=== PATIENT | female | born 1965 | race Caucasian/White ===

== ENCOUNTER 2016-11-07 18:34 | Observation (INO) | payer BC ==
[2016-11-07] MEDS ORDERED: Sodium Chloride 0.9% 1,000 ML IV ONE ×2 (18:50→22:14)
--- NOTE | 2016-11-07 19:17 | EDM.PDOC ---
ED HISTORY OF PRESENT ILLNESS - General Chief Complaint: Respiratory Problem Stated Complaint: fever, cough, fatigue Time Seen by Provider: 11/07/16 19:00 Source of Information: Reports: Patient, Family History Limitations: Reports: No limitations - History of Present Illness INITIAL COMMENTS - FREE TEXT/NARRATIVE: 6 days of fever (subjective), chills, cough for about 5 days, weak and fatigued today. Chest is hurting with cough. Symptom Onset Date: 11/02/16 Severity: severe Location, General: Reports: chest Quality: Reports: Ache (with cough) Improves with: Reports: None Worsens with: Reports: Other (cough) Associated Symptoms (General): Reports: chest pain (with cough), cough, fever/ chills, malaise, nausea/vomiting (only when coughing too hard), weakness. Denies: confusion, rash, shortness of breath, syncope - Related Data Allergies/ADRs: Allergies Allergy/AdvReac Type Severity Reaction Status Date / Time No Known Allergies Allergy Verified 11/07/16 18:39 Home Meds: Home Meds Ibuprofen [Advil] 400 mg PO Q6H PRN 11/07/16 [History] PARoxetine HCl [Paroxetine HCl] 1 tab PO DAILY 11/07/16 [History] Phenylephrine/Dm/Acetaminop/Gg [Delsym Cough+Cold Daytime Liq] 1 dose PO ASDIRECTED PRN 11/07/16 [History] SUMAtriptan Succinate [Sumatriptan Succinate] 1 tab PO ASDIRECTED PRN 11/07/16 [ History] guaiFENesin/Dextromethorphan [Mucinex Dm ER 1,200-60 mg Tab] 1 each PO ASDIRECTED PRN 11/07/16 [History] ED ROS GENERAL - Review of Systems Review Of Systems: See Below Constitutional: Reports: fever, chills, malaise, weakness, fatigue HEENT: Reports: No symptoms Respiratory: Reports: Pleuritic Chest Pain, Cough Cardiovascular: Reports: No symptoms Endocrine: Reports: no symptoms GI/Abdominal: Reports: No symptoms : Reports: no symptoms Musculoskeletal: Reports: no symptoms Skin: Reports: no symptoms Neurological: Reports: No Symptoms Psychiatric: Reports: No symptoms Hematologic/Lymphatic: Reports: no symptoms Immunologic: Reports: no symptoms ED EXAM, GENERAL - Physical Exam Exam: See Below Exam Limited By: No limitations General Appearance: alert, WD/WN, mild distress (uncomfortable, fatigued) Eye Exam: bilateral eye: EOMI, PERRL Ears: normal external exam, hearing grossly normal Nose: normal inspection, normal mucosa, no blood Throat/Mouth: Normal inspection, Normal oropharynx, Normal voice, No airway compromise Head: atraumatic, normocephalic Neck: normal inspection, supple, non-tender, full range of motion. No: lymphadenopathy (L), lymphadenopathy (R) Respiratory/Chest: no respiratory distress, no accessory muscle use, rhonchi ( trace and scattered) Cardiovascular: normal peripheral pulses, regular rate, rhythm, no JVD, no murmur GI/Abdominal: normal bowel sounds, soft, non tender, no organomegaly Back Exam: normal inspection, full range of motion Extremities: normal inspection, normal range of motion, non-tender, no pedal edema, normal capillary refill Neurological: alert, oriented, CN II-XII intact, normal cognition, normal gait, no motor/sensory deficits Psychiatric: normal affect, normal mood Skin Exam: Warm, Dry, Intact, Normal color, No rash Lymphatic: no adenopathy Course - Vital Signs Last Recorded V/S: Last Vital Signs Temp 37.3 C 11/07/16 18:35 Pulse 73 11/07/16 18:35 Resp 22 H 11/07/16 18:35 BP 97/57 L 11/07/16 18:35 Pulse Ox 96 11/07/16 18:35 - Orders/Labs/Meds Orders: Active Orders 24 hr Category Date Time Status Orthostatic Vital Signs [RC] ASDIRECTED Care 11/07/16 20:17 Active Chest 2V [CR] Stat Exams 11/07/16 18:49 Taken CULTURE BLOOD [BC] Stat Lab 11/07/16 19:00 Received CULTURE BLOOD [BC] Stat Lab 11/07/16 19:40 Received UA W/MICROSCOPIC [URIN] Stat Lab 11/07/16 18:52 Uncollected Sodium Chloride 0.9% [Saline Flush] Med 11/07/16 18:53 Active 10 ml FLUSH ASDIRECTED PRN Blood Culture x2 Reflex Set [OM.PC] Stat Oth 11/07/16 19:38 Ordered Saline Lock Insert [OM.PC] Routine Oth 11/07/16 18:53 Ordered Medication Orders Promethazine HCl/Codeine (Phenergan With Codeine) 10 ml PO Q6HR PRN PRN Reason: Cough Sodium Chloride (Saline Flush) 10 ml FLUSH ASDIRECTED PRN PRN Reason: Keep Vein Open Labs: Laboratory Tests 11/07/16 11/07/16 11/07/16 Range/Units 19:00 19:00 19:00 WBC 7.1 (4.0-10.2) K/uL RBC 4.24 (3.77-5.09) M/uL Hgb 12.8 (11.7-15.5) g/dL Hct 37.8 (34.0-46.0) % MCV 89.2 (84.0-98.0) fL MCH 30.2 (28.2-33.3) pg MCHC 33.9 (31.7-36.0) g/dL RDW 12.6 (11.2-14.1) % Plt Count 96 L (150-350) K/uL Neut % (Auto) 74.7 (45.0-80.0) % Lymph % (Auto) 16.8 (10.0-50.0) % [place] % (Auto) 8.1 (2.0-14.0) % Eos % (Auto) 0.3 (0.0-5.0) % Baso % (Auto) 0.1 (0.0-2.0) % Neut # 5.32 (1.40-7.00) K/uL Lymph # 1.20 (0.50-3.50) K/uL [place] # 0.58 (0.00-1.00) K/uL Eos # 0.02 (0.00-0.50) K/uL Baso # 0.01 (0.00-0.20) K/uL Sodium 140 (136-145) mmol/L Potassium 3.9 (3.5-5.1) mmol/L Chloride 104 (98-107) mmol/L Carbon Dioxide 23.8 (21.0-32.0) mmol/L BUN 9 (7-18) mg/dL Creatinine 0.84 (0.51-1.17) mg/dL Est Cr Clr Drug Dosing 72.51 mL/min Estimated GFR (MDRD) > 60 mL/min Glucose 98 (74-106) mg/dL Lactic Acid 1.9 (0.4-2.0) mmol/L Calcium 8.4 L (8.5-10.1) mg/dL Total Bilirubin 0.4 (0.2-1.0) mg/dL AST 24 (15-37) U/L ALT 18 (12-78) U/L Alkaline Phosphatase 57 (46-116) IU/L Total Protein 7.1 (6.4-8.2) g/dL Albumin 3.9 (3.4-5.0) g/dL HCG, Qual (NEGATIVE) 11/07/16 Range/Units 19:00 WBC (4.0-10.2) K/uL RBC (3.77-5.09) M/uL Hgb (11.7-15.5) g/dL Hct (34.0-46.0) % MCV (84.0-98.0) fL MCH (28.2-33.3) pg MCHC (31.7-36.0) g/dL RDW (11.2-14.1) % Plt Count (150-350) K/uL Neut % (Auto) (45.0-80.0) % Lymph % (Auto) (10.0-50.0) % [place] % (Auto) (2.0-14.0) % Eos % (Auto) (0.0-5.0) % Baso % (Auto) (0.0-2.0) % Neut # (1.40-7.00) K/uL Lymph # (0.50-3.50) K/uL [place] # (0.00-1.00) K/uL Eos # (0.00-0.50) K/uL Baso # (0.00-0.20) K/uL Sodium (136-145) mmol/L Potassium (3.5-5.1) mmol/L Chloride (98-107) mmol/L Carbon Dioxide (21.0-32.0) mmol/L BUN (7-18) mg/dL Creatinine (0.51-1.17) mg/dL Est Cr Clr Drug Dosing mL/min Estimated GFR (MDRD) mL/min Glucose (74-106) mg/dL Lactic Acid (0.4-2.0) mmol/L Calcium (8.5-10.1) mg/dL Total Bilirubin (0.2-1.0) mg/dL AST (15-37) U/L ALT (12-78) U/L Alkaline Phosphatase (46-116) IU/L Total Protein (6.4-8.2) g/dL Albumin (3.4-5.0) g/dL HCG, Qual Negative (NEGATIVE) Meds: Medications Generic Name Dose Route Start Last Admin Trade Name Freq PRN Reason Stop Dose Admin Promethazine HCl/Codeine 10 ml 11/07/16 20:51 Phenergan With Codeine PO Q6HR PRN Cough Sodium Chloride 10 ml 11/07/16 18:53 Saline Flush FLUSH ASDIRECTED PRN Keep Vein Open Discontinued Medications Generic Name Dose Route Start Last Admin Trade Name Freq PRN Reason Stop Dose Admin Azithromycin 500 mg 11/07/16 19:38 11/07/16 19:50 Zithromax PO 11/07/16 19:39 500 mg ONETIME ONE Administration Sodium Chloride 1,000 mls @ 999 mls/hr 11/07/16 18:50 11/07/16 19:03 Normal Saline IV 11/07/16 19:50 999 mls/hr .BOLUS ONE Administration Ceftriaxone Sodium 1 gm/ 100 mls @ 200 mls/hr 11/07/16 19:38 11/07/16 19:50 Sodium Chloride IV 11/07/16 20:07 200 mls/hr ONETIME ONE Administration - Re-Assessments/Exams Free Text/Narrative Re-Assessment/Exam: 11/07/16 21:09 Feels better with fluids. Orthostatics positive with SBP 85 while standing. Departure - Departure Time of Disposition: 21:09 Disposition: Refer to Observation Condition: fair Clinical Impression: Pneumonia Qualifiers: Pneumonia type: due to unspecified organism Laterality: left Lung location: lower lobe of lung Qualified Code(s): J18.1 - Lobar pneumonia, unspecified organism - Problem List Review Problem List Initiated/Reviewed/Updated: No - My Orders Last 24 Hours: My Active Orders 11/07/16 18:49 Chest 2V [CR] Stat 11/07/16 18:52 UA W/MICROSCOPIC [URIN] Stat 11/07/16 18:53 Sodium Chloride 0.9% [Saline Flush] 10 ml FLUSH ASDIRECTED PRN Saline Lock Insert [OM.PC] Routine 11/07/16 19:00 CULTURE BLOOD [BC] Stat 11/07/16 19:38 Blood Culture x2 Reflex Set [OM.PC] Stat 11/07/16 19:40 CULTURE BLOOD [BC] Stat 11/07/16 20:17 Orthostatic Vital Signs [RC] ASDIRECTED - Assessment/Plan Last 24 Hours: My Active Orders 11/07/16 18:49 Chest 2V [CR] Stat 11/07/16 18:52 UA W/MICROSCOPIC [URIN] Stat 11/07/16 18:53 Sodium Chloride 0.9% [Saline Flush] 10 ml FLUSH ASDIRECTED PRN Saline Lock Insert [OM.PC] Routine 11/07/16 19:00 CULTURE BLOOD [BC] Stat 11/07/16 19:38 Blood Culture x2 Reflex Set [OM.PC] Stat 11/07/16 19:40 CULTURE BLOOD [BC] Stat 11/07/16 20:17 Orthostatic Vital Signs [RC] ASDIRECTED Assessment:: Pneumonia with persistent orthostatic hypotension after NS Plan: Observation Rocephin/Zithromax Fluids Cultures/ follow labs
[2016-11-07 19:28] LABS: CHLORIDE,CL 104 mmol/L (98-107); SODIUM,NA 140 mmol/L (136-145)
[2016-11-07] MEDS ORDERED: cefTRIAXone 1 GM in Sodium Chloride 0.9% 100 ML IV ONE (19:38)
[2016-11-07] MEDS ORDERED: Azithromycin 250 MG Tab PO ONE (19:38)
[2016-11-07] MEDS ORDERED: cefTRIAXone 1 GM in Sodium Chloride 0.9% 100 ML IV SCH (20:00)
[2016-11-07] MEDS: Codeine/Promethazine 10-6.25 MG/5 ML Syrup 5 ML UD Cup PO PRN (21:22)
[2016-11-07] MEDS ORDERED: SUMAtriptan 50 MG Tab PO PRN (22:14)
[2016-11-07] MEDS ORDERED: Ibuprofen 200 MG Tab PO PRN (22:14)
[2016-11-07] MEDS ORDERED: Calcium Carbonate 500 MG Tab.Chew PO PRN (22:14)
[2016-11-07] MEDS ORDERED: Acetaminophen 325 MG Tab PO PRN (22:14)
[2016-11-07] MEDS: Sodium Chloride 0.9% 1,000 ML IV SCH (22:48)
[2016-11-08] MEDS: Albuterol/Ipratropium 3.0-0.5 MG/3 ML Neb Soln NEB SCH ×4 (00:01→23:57)
[2016-11-08] MEDS: Codeine/Promethazine 10-6.25 MG/5 ML Syrup 5 ML UD Cup PO PRN ×4 (04:05→23:57)
[2016-11-08] MEDS: Sodium Chloride 0.9% 1,000 ML IV SCH ×3 (06:26→19:13)
[2016-11-08] MEDS: PARoxetine 20 MG Tab PO SCH (07:46)
[2016-11-08] MEDS: Azithromycin 250 MG Tab PO SCH (07:46)
[2016-11-08] MEDS ORDERED: Ketorolac 30 MG/ML SDV IVPUSH ONE (07:55)
[2016-11-08] MEDS: Sodium Chloride 0.9% 10 ML Syringe FLUSH PRN (08:28)
[2016-11-08] MEDS: SUMAtriptan 50 MG Tab PO PRN ×2 (08:29→16:31)
[2016-11-08] MEDS: Acetaminophen/HYDROcodone 325-5 MG Tab PO PRN ×2 (08:29→16:31)
[2016-11-08] MEDS ORDERED: Sodium Chloride 0.9% 500 ML IV ONE (09:47)
[2016-11-08] MEDS ORDERED: Ibuprofen 200 MG Tab PO PRN (14:00)
[2016-11-08] MEDS ORDERED: cefTRIAXone 1 GM in Sodium Chloride 0.9% 100 ML IV SCH (20:00)
[2016-11-09] MEDS: Sodium Chloride 0.9% 1,000 ML IV SCH ×2 (03:41→11:45)
[2016-11-09 07:45] LABS: CHLORIDE,CL 112 mmol/L (98-107); SODIUM,NA 147 mmol/L (136-145)
[2016-11-09] MEDS: PARoxetine 20 MG Tab PO SCH (08:08)
[2016-11-09] MEDS: Azithromycin 250 MG Tab PO SCH (08:08)
[2016-11-09] MEDS: Albuterol/Ipratropium 3.0-0.5 MG/3 ML Neb Soln NEB SCH (08:08)
[2016-11-09] MEDS: SUMAtriptan 50 MG Tab PO PRN (08:08)
[2016-11-09] MEDS: Acetaminophen/HYDROcodone 325-5 MG Tab PO PRN (08:09)
[2016-11-09] MEDS: Sodium Chloride 0.9% 10 ML Syringe FLUSH PRN ×2 (08:13→13:28)
[2016-11-09] MEDS: Codeine/Promethazine 10-6.25 MG/5 ML Syrup 5 ML UD Cup PO PRN (09:01)
[2016-11-09 11:51] VITALS: BP 135/74
--- NOTE | 2016-11-09 12:47 | PCM.PN ---
- General Info Date of Service: 11/08/16 Admission Dx/Problem (Free Text): Observation since yesterday with Left lower pneumonia. Hypotension Functional Status: Reports: pain controlled - Review of Systems General: Reports: Malaise. Denies: Fever HEENT: Reports: no symptoms Pulmonary: Reports: pleuritic chest pain, cough Cardiovascular: Reports: No Symptoms Gastrointestinal: Reports: No symptoms Genitourinary: Reports: no symptoms Musculoskeletal: Reports: no symptoms Skin: Reports: no symptoms Neurological: Reports: No Symptoms Psychiatric: Reports: no symptoms - Patient Data Vitals - most recent: Last Vital Signs Temp 36.6 C 11/09/16 11:49 Pulse 63 11/09/16 11:49 Resp 18 11/09/16 11:49 BP 135/74 11/09/16 11:49 Pulse Ox 92 L 11/09/16 11:49 Orthostatic Blood Pressure [ 87/48 Standing] Orthostatic Blood Pressure [ 135/74 Sitting] Orthostatic Blood Pressure [ 89/41 Side, Left] Weight - most recent: 59.874 kg I&O - last 24 hours: Intake & Output 11/08/16 11/09/16 11/09/16 22:59 06:59 14:59 Intake Total 1760 4311 170 Output Total 1100 1700 Balance 660 2611 170 Lab Results last 24 hrs: Laboratory Results - last 24 hr 11/09/16 11/09/16 Range/Units 06:55 06:55 WBC 7.9 (4.0-10.2) K/uL RBC 3.23 L (3.77-5.09) M/uL Hgb 9.8 L (11.7-15.5) g/dL Hct 30.1 L (34.0-46.0) % MCV 93.2 (84.0-98.0) fL MCH 30.3 (28.2-33.3) pg MCHC 32.6 (31.7-36.0) g/dL RDW 13.2 (11.2-14.1) % Plt Count 83 L (150-350) K/uL Neut % (Auto) 71.8 (45.0-80.0) % Lymph % (Auto) 20.5 (10.0-50.0) % [place] % (Auto) 6.6 (2.0-14.0) % Eos % (Auto) 0.8 (0.0-5.0) % Baso % (Auto) 0.3 (0.0-2.0) % Neut # 5.65 (1.40-7.00) K/uL Lymph # 1.61 (0.50-3.50) K/uL [place] # 0.52 (0.00-1.00) K/uL Eos # 0.06 (0.00-0.50) K/uL Baso # 0.02 (0.00-0.20) K/uL Sodium 147 H (136-145) mmol/L Potassium 4.1 (3.5-5.1) mmol/L Chloride 112 H (98-107) mmol/L Carbon Dioxide 25.6 (21.0-32.0) mmol/L BUN 4 L (7-18) mg/dL Creatinine 0.73 (0.51-1.17) mg/dL Est Cr Clr Drug Dosing 88.11 mL/min Estimated GFR (MDRD) > 60 mL/min Glucose 96 (74-106) mg/dL Calcium 7.5 L (8.5-10.1) mg/dL Med Orders - Current: Current Medications Acetaminophen (Tylenol) 650 mg PO Q4H PRN PRN Reason: analgesia/fever Acetaminophen/Hydrocodone Bitart ([place] 325-5 Mg) 0.5 tab PO Q4H PRN PRN Reason: Pain Last Admin: 11/09/16 08:09 Dose: 0.5 tab Albuterol/Ipratropium (Duoneb 3.0-0.5 Mg/3 Ml) 3 ml NEB Q8HRRT [facility] Last Admin: 11/09/16 08:08 Dose: 3 ml Azithromycin (Zithromax) 250 mg PO DAILY [facility] Last Admin: 11/09/16 08:08 Dose: 250 mg Calcium Carbonate/Glycine (Tums) 500 mg PO Q4H PRN PRN Reason: Dyspepsia Sodium Chloride (Normal Saline) 1,000 mls @ 125 mls/hr IV ASDIRECTED [facility] Last Admin: 11/09/16 11:45 Dose: 125 mls/hr Ceftriaxone Sodium 1 gm/ (Sodium Chloride) 100 mls @ 200 mls/hr IV Q24H [facility] Last Admin: 11/08/16 19:13 Dose: 200 mls/hr Ibuprofen (Motrin) 400 mg PO Q6H PRN PRN Reason: Pain Last Admin: 11/08/16 23:57 Dose: 400 mg Paroxetine HCl (Paxil) 40 mg PO DAILY [facility] Last Admin: 11/09/16 08:08 Dose: 40 mg Promethazine HCl/Codeine (Phenergan With Codeine) 10 ml PO Q6HR PRN PRN Reason: Cough Last Admin: 11/09/16 09:01 Dose: 10 ml Sodium Chloride (Saline Flush) 10 ml FLUSH ASDIRECTED PRN PRN Reason: Keep Vein Open Last Admin: 11/09/16 08:13 Dose: 10 ml Sumatriptan Succinate (Imitrex) 50 mg PO Q2H PRN PRN Reason: migraine Last Admin: 11/09/16 08:08 Dose: 50 mg Discontinued Medications Azithromycin (Zithromax) 500 mg PO ONETIME ONE Stop: 11/07/16 19:39 Last Admin: 11/07/16 19:50 Dose: 500 mg Sodium Chloride (Normal Saline) 1,000 mls @ 999 mls/hr IV .BOLUS ONE Stop: 11/07/16 19:50 Last Admin: 11/07/16 19:03 Dose: 999 mls/hr Ceftriaxone Sodium 1 gm/ (Sodium Chloride) 100 mls @ 200 mls/hr IV ONETIME ONE Stop: 11/07/16 20:07 Last Admin: 11/07/16 19:50 Dose: 200 mls/hr Sodium Chloride (Normal Saline) 1,000 mls @ 999 mls/hr IV .BOLUS ONE Stop: 11/07/16 23:14 Last Admin: 11/07/16 21:20 Dose: 999 mls/hr Ceftriaxone Sodium 1 gm/ (Sodium Chloride) 100 mls @ 200 mls/hr IV Q24H [facility] Last Admin: 11/07/16 22:52 Dose: Not Given Sodium Chloride (Normal Saline) 500 mls @ 999 mls/hr IV .BOLUS ONE Stop: 11/08/16 10:17 Last Admin: 11/08/16 10:21 Dose: Not Given Ibuprofen (Motrin) 400 mg PO Q6H PRN PRN Reason: Pain Last Admin: 11/08/16 04:04 Dose: 400 mg Ketorolac Tromethamine (Toradol) 30 mg IVPUSH ONETIME ONE Stop: 11/08/16 07:56 Last Admin: 11/08/16 08:28 Dose: 30 mg Sumatriptan Succinate (Imitrex) mg PO ASDIRECTED PRN PRN Reason: migraine - Exam General: alert, oriented HEENT: Pupils equal, Pupils reactive, EOMI, Mucous membr. moist/pink Neck: supple Lungs: Normal respiratory effort, Rhonchi (mild) Cardiovascular: Regular Rate, Regular Rhythm Abdomen: soft, no tenderness, no distension Back Exam: normal inspection, full range of motion Extremities: no edema Peripheral Pulses: 4+: dorsalis pedis (L), dorsalis pedis (R) Skin: warm, dry, intact Neurological: no new focal deficit Psy/Mental Status: alert, normal affect, normal mood - Problem List Review Problem List Initiated/Reviewed/Updated: No - My Orders Last 24 Hours: My Active Orders 11/08/16 14:00 Ibuprofen [Motrin] 400 mg PO Q6H PRN 11/08/16 20:00 cefTRIAXone [Rocephin] 1 gm Sodium Chloride 0.9% [Normal Saline] 100 ml IV Q24H 11/09/16 08:00 Chest 2V [CR] Routine - Assessment Assessment:: 1. Pneumonia - Normal WBC and Temp. Oxygen Sats normal 2. Hypotension secondary to #1 - continues this AM - Plan Plan:: 1. Continue IV antibiotics 2. Continue IV fluids 3. Await cultures
--- NOTE | 2016-11-09 12:55 | PCM.DCSUM1 ---
Discharge Summary - Hospital Course Free Text/Narrative:: Placed in Obs 1.5 days ago with Pneumonia and orthostatic hypotension Brief History: Left Lower Pneumonia with orthostatic hypotension on admission. Afebrile, normal WBC - Discharge Data Discharge Date: 11/09/16 Discharge Disposition: Home, Self-Care 01 Condition: Good - Discharge Diagnosis/Problem(s) (1) Pneumonia SNOMED Code(s): 716642367 ICD Code: J18.9 - PNEUMONIA, UNSPECIFIED ORGANISM Status: Acute Current Visit: Yes Qualifiers: Pneumonia type: due to unspecified organism Laterality: left Lung location: lower lobe of lung Qualified Code(s): J18.1 - Lobar pneumonia, unspecified organism - Patient Summary/Data Labs Pending at D/C: Blood cultures negative at 1.5 days Hospital Course: Hypotension continued for the first 24 hours. Has been normal for the last 12 hours. Stable at time of D/C - Patient Instructions Diet: Regular Diet as Tolerated - Discharge Plan Prescriptions/Med Rec: Azithromycin [Zithromax] 250 mg PO DAILY #6 tablet Home Medications: Home Meds Ibuprofen [Advil] 400 mg PO Q6H PRN 11/07/16 [History] PARoxetine HCl [Paroxetine HCl] 1 tab PO DAILY 11/07/16 [History] Phenylephrine/Dm/Acetaminop/Gg [Delsym Cough+Cold Daytime Liq] 1 dose PO ASDIRECTED PRN 11/07/16 [History] SUMAtriptan Succinate [Sumatriptan Succinate] 1 tab PO Q2HR PRN 11/07/16 [ History] guaiFENesin/Dextromethorphan [Mucinex Dm ER 1,200-60 mg Tab] 1 each PO ASDIRECTED PRN 11/07/16 [History] Hydrocodone/Acetaminophen [Hydrocodon-Acetaminophen 5-325] 0.5 tab PO Q4H PRN [History] Azithromycin [Zithromax] 250 mg PO DAILY #6 tablet 11/09/16 [Rx] Forms: ED Department Discharge Referrals: Shira Lauren, OUTCOME ANALYST [Primary Care Provider] - - Discharge Summary/Plan Comment DC Time >30 min.: No - General Info Date of Service: 11/09/16 Admission Dx/Problem (Free Text: Observation since yesterday with Left lower pneumonia. Hypotension Functional Status: Reports: pain controlled - Review of Systems General: Reports: No Symptoms HEENT: Reports: no symptoms Pulmonary: Reports: cough (improved). Denies: shortness of breath Cardiovascular: Reports: No Symptoms Gastrointestinal: Reports: No symptoms Genitourinary: Reports: no symptoms Musculoskeletal: Reports: no symptoms Skin: Reports: no symptoms Neurological: Reports: No Symptoms Psychiatric: Reports: no symptoms - Patient Data Vitals - Most Recent: Last Vital Signs Temp 36.6 C 11/09/16 11:49 Pulse 63 11/09/16 11:49 Resp 18 11/09/16 11:49 BP 135/74 11/09/16 11:49 Pulse Ox 92 L 11/09/16 11:49 Orthostatic Blood Pressure [ 87/48 Standing] Orthostatic Blood Pressure [ 135/74 Sitting] Orthostatic Blood Pressure [ 89/41 Side, Left] Weight - Most Recent: 59.874 kg I&O - Last 24 hours: Intake & Output 11/08/16 11/09/16 11/09/16 22:59 06:59 14:59 Intake Total 1760 4311 170 Output Total 1100 1700 Balance 660 2611 170 Lab Results - Last 24 hrs: Laboratory Results - last 24 hr 11/09/16 11/09/16 Range/Units 06:55 06:55 WBC 7.9 (4.0-10.2) K/uL RBC 3.23 L (3.77-5.09) M/uL Hgb 9.8 L (11.7-15.5) g/dL Hct 30.1 L (34.0-46.0) % MCV 93.2 (84.0-98.0) fL MCH 30.3 (28.2-33.3) pg MCHC 32.6 (31.7-36.0) g/dL RDW 13.2 (11.2-14.1) % Plt Count 83 L (150-350) K/uL Neut % (Auto) 71.8 (45.0-80.0) % Lymph % (Auto) 20.5 (10.0-50.0) % [place] % (Auto) 6.6 (2.0-14.0) % Eos % (Auto) 0.8 (0.0-5.0) % Baso % (Auto) 0.3 (0.0-2.0) % Neut # 5.65 (1.40-7.00) K/uL Lymph # 1.61 (0.50-3.50) K/uL [place] # 0.52 (0.00-1.00) K/uL Eos # 0.06 (0.00-0.50) K/uL Baso # 0.02 (0.00-0.20) K/uL Sodium 147 H (136-145) mmol/L Potassium 4.1 (3.5-5.1) mmol/L Chloride 112 H (98-107) mmol/L Carbon Dioxide 25.6 (21.0-32.0) mmol/L BUN 4 L (7-18) mg/dL Creatinine 0.73 (0.51-1.17) mg/dL Est Cr Clr Drug Dosing 88.11 mL/min Estimated GFR (MDRD) > 60 mL/min Glucose 96 (74-106) mg/dL Calcium 7.5 L (8.5-10.1) mg/dL Med Orders - Current: Current Medications Acetaminophen (Tylenol) 650 mg PO Q4H PRN PRN Reason: analgesia/fever Acetaminophen/Hydrocodone Bitart ([place] 325-5 Mg) 0.5 tab PO Q4H PRN PRN Reason: Pain Last Admin: 11/09/16 08:09 Dose: 0.5 tab Albuterol/Ipratropium (Duoneb 3.0-0.5 Mg/3 Ml) 3 ml NEB Q8HRRT [facility] Last Admin: 11/09/16 08:08 Dose: 3 ml Azithromycin (Zithromax) 250 mg PO DAILY [facility] Last Admin: 11/09/16 08:08 Dose: 250 mg Calcium Carbonate/Glycine (Tums) 500 mg PO Q4H PRN PRN Reason: Dyspepsia Sodium Chloride (Normal Saline) 1,000 mls @ 125 mls/hr IV ASDIRECTED [facility] Last Admin: 11/09/16 11:45 Dose: 125 mls/hr Ceftriaxone Sodium 1 gm/ (Sodium Chloride) 100 mls @ 200 mls/hr IV Q24H [facility] Last Admin: 11/08/16 19:13 Dose: 200 mls/hr Ibuprofen (Motrin) 400 mg PO Q6H PRN PRN Reason: Pain Last Admin: 11/08/16 23:57 Dose: 400 mg Paroxetine HCl (Paxil) 40 mg PO DAILY [facility] Last Admin: 11/09/16 08:08 Dose: 40 mg Promethazine HCl/Codeine (Phenergan With Codeine) 10 ml PO Q6HR PRN PRN Reason: Cough Last Admin: 11/09/16 09:01 Dose: 10 ml Sodium Chloride (Saline Flush) 10 ml FLUSH ASDIRECTED PRN PRN Reason: Keep Vein Open Last Admin: 11/09/16 08:13 Dose: 10 ml Sumatriptan Succinate (Imitrex) 50 mg PO Q2H PRN PRN Reason: migraine Last Admin: 11/09/16 08:08 Dose: 50 mg Discontinued Medications Azithromycin (Zithromax) 500 mg PO ONETIME ONE Stop: 11/07/16 19:39 Last Admin: 11/07/16 19:50 Dose: 500 mg Sodium Chloride (Normal Saline) 1,000 mls @ 999 mls/hr IV .BOLUS ONE Stop: 11/07/16 19:50 Last Admin: 11/07/16 19:03 Dose: 999 mls/hr Ceftriaxone Sodium 1 gm/ (Sodium Chloride) 100 mls @ 200 mls/hr IV ONETIME ONE Stop: 11/07/16 20:07 Last Admin: 11/07/16 19:50 Dose: 200 mls/hr Sodium Chloride (Normal Saline) 1,000 mls @ 999 mls/hr IV .BOLUS ONE Stop: 11/07/16 23:14 Last Admin: 11/07/16 21:20 Dose: 999 mls/hr Ceftriaxone Sodium 1 gm/ (Sodium Chloride) 100 mls @ 200 mls/hr IV Q24H [facility] Last Admin: 11/07/16 22:52 Dose: Not Given Sodium Chloride (Normal Saline) 500 mls @ 999 mls/hr IV .BOLUS ONE Stop: 11/08/16 10:17 Last Admin: 11/08/16 10:21 Dose: Not Given Ibuprofen (Motrin) 400 mg PO Q6H PRN PRN Reason: Pain Last Admin: 11/08/16 04:04 Dose: 400 mg Ketorolac Tromethamine (Toradol) 30 mg IVPUSH ONETIME ONE Stop: 11/08/16 07:56 Last Admin: 11/08/16 08:28 Dose: 30 mg Sumatriptan Succinate (Imitrex) mg PO ASDIRECTED PRN PRN Reason: migraine - Exam General: Reports: alert, oriented HEENT: Reports: Pupils equal, Pupils reactive, EOMI, Mucous membr. moist/pink Neck: Reports: supple Lungs: Reports: Clear to auscultation, Normal respiratory effort. Denies: Decreased breath sounds, Rhonchi Cardiovascular: Reports: Regular Rate, Regular Rhythm Abdomen: Reports: bowel sounds present, soft, no tenderness, no distension Back Exam: Reports: normal inspection, full range of motion Extremities: Reports: no edema Skin: Reports: warm, dry, intact Neurological: Reports: no new focal deficit Psy/Mental Status: Reports: alert, normal affect, normal mood Physical Findings Comments:: still feeling weak, but better *Q Meaningful Use (DIS) - VTE *Q VTE Criteria *Q: - Stroke *Q Stroke Criteria *Q: - AMI *Q AMI Criteria *Q:
[2016-11-09] MEDS ORDERED: cefTRIAXone 1 GM Vial IVPUSH ONE (13:01)
== END 2016-11-09 14:30 | disposition home or self-care (01) ==
LOC: LL.ED 18:34 → LL.MS 20:50
PROVIDERS: ADMIT Emergency Medicine; ATTEND Emergency Medicine
DX: J18.9 Pneumonia, unspecified organism (principal); I95.1 Orthostatic hypotension; Z79.899 Other long term (current) drug therapy
CPT/HCPCS: 36415; 71020; 80048; 80053; 81001; 83605; 84703; 85025; 87040; 87804; 94640; 94664; 96361; 96365; 99284; A9270; J0696; J1885; J7030; J7050; 96366; 96375; G0378